=== PATIENT | female | born 1970 | race African-American/Black ===

== ENCOUNTER 2016-10-27 18:09 | Emergency (ER) | payer OTHER ==
--- NOTE | ~2016-10-27 | CT71 ---
[facility] A Service of [facility] RADIOLOGY TEXT RESULTS PATIENT: TYLER HOFFMAN LOCATION: [facility] : 74 UNIT #: [id number] AGE: [address]: Emilia Carlton SEX: F ORDER DR: [id number] [facility] [place], [place] [address] [id number] E MR#: [id number] Acc #: [id number] NAME: TYLER HOFFMAN. : 1970 SEX: F STUDY DATE/TIME: 10/27/2016 18:56 UNIT: [facility] ROOM: STUDY DESCRIPTION: CT Head Wo Contrast Attending Physician: Emilia Carlton P.A.-C. Ordering Physician: Emilia Carlton P.A.-C. Primary Care Physician: No Primary Care Physician MEDICAL IMAGING REPORT This report is preliminary unless electronic signature is present EXAM CT head INDICATIONS Headache for 3 weeks. Possible pain. Trauma to the neck and head approximately [address] head without contrast. COMPARISON None available. FINDINGS Axial noncontrast images were obtained from the skull base to the vertex. This CT exam was performed with one or more of the following radiation dose reduction techniques: automatic exposure control, adjustment of mA and/or kV according to patient size, and iterative reconstruction. FINDINGS Ventricular size and configuration are normal. There is no evidence of acute infarct or hemorrhage. There are no extraaxial fluid collections. No mass lesion or mass effect is seen. There are no skull fractures. IMPRESSION Normal noncontrast head CT. Dictated by... Leon Bundy M.D. THIS IS AN ELECTRONICALLY VERIFIED REPORT Leon Bundy M.D. at 10/27/2016 10:31 PM [facility] A Service [facility] RADIOLOGY TEXT RESULTS PATIENT: TYLER HOFFMAN LOCATION: [facility] : 74 UNIT #: [id number] AGE: [address]: Emilia Carlton SEX: F ORDER DR: Lia TD: 10/27/2016 20:49 JOB #: [id number] MEDICAL IMAGING REPORT Page 1 of 1 COPY
[~2016-10-27 18:09] MED LIST: BACTRIM DS TABL1 TAB PO; IBUPROFEN800 MG PO; NO MEDICATIONS; VICODIN ES 7.51 EACH PO; VICOPROFEN 200-1 TAB PO
== END 2016-10-27 19:20 | disposition home or self-care (01) ==
LOC: CED 18:09 → CFTX 18:09
DX: R51 Headache (principal); R03.0 Elevated blood-pressure reading, without diagnosis of hypertension; Z98.51 Tubal ligation status
CPT/HCPCS: 70450; 96372; 99284; J1885